=== PATIENT | female | born 1965 | race Caucasian/White ===

== ENCOUNTER → 2018-11-14 | Outpatient (CLI) | payer OTHER ==
[~2018-11-14] MED LIST: HCTZ PO; LEXA1TAB2 PO; LISI10TA4 PO; PAXI20TA29 PO; TRAM50TA2 PO; TRAZ-252 PO
--- NOTE | 2018-11-14 15:19 | REP ---
MRI brain without contrast: History: 47 fullness. Memory loss. . Comparison study: No comparison brain imaging. Technique: Axial and sagittal imaging planes are utilized for T1 and T2-weighted scans. Sequences include spin-echo, fast spin echo, FLAIR, and diffusion weighted sequences. MRI findings: No bony calvarial lesion is seen. Craniocervical junction and upper cervical cord are normal in appearance. There is no MR evidence of significant paranasal sinus disease. No intraorbital abnormality is seen. The lateral, third, and fourth ventricles are normal in size and position. Keith-white differentiation pattern is intact above and below the tentorium. There is no evidence of intracranial hemorrhage. No mass, infarction, extra-axial fluid collection or midline shift is seen. No abnormal white matter lesion is seen. Impression: Negative noncontrast brain MRI study. Electronically Signed by Noah Newberry MD 11/14/2018 03:11 P
--- NOTE | 2018-11-14 15:52 | REP ---
MRI lumbar spine without contrast: History: Lower back pain with radicular symptoms. Degenerative disc disease. Spinal arthritis. No comparison lumbar spine imaging. Technique: Sagittal and axial T1 and T2-weighted scans are acquired in the usual fashion with and without fat saturation. Sequences include spin echo, turbo spin-echo, and STIR imaging sequences. MRI findings: Lumbar vertebral body heights are preserved. There is degenerative disc disease at L3-4 and L4-5 and to some degree L5-S1 with narrowing and decreased disc space signal intensity. There are fairly prominent reactive marrow changes on either side of the L4-5 disc level. Cortical and medullary bone signal intensity are otherwise normal. The tip of the conus medullaris is normal in position and appearance at L1. At L5-S1, axial and sagittal images demonstrate moderate facet hypertrophy bilaterally, left greater than right. There is a left foraminal disc bulge. The left S1 root sleeve is surrounded by epidural fat without evidence of compression however. At L4-5, there is degenerative disc narrowing. Diffuse posterior disc bulging and early spurring is seen effacing the thecal sac. The pedicles are developmentally short and there is a moderate ligamentum flavum and facet hypertrophy. These factors combine to produce moderate central canal stenosis. Midline AP dimension of the thecal sac at this level is 6.4 mm. No neural foraminal narrowing is seen. At L3-4, there is a grade 1 degenerative 3 mm spondylolisthesis. This is due to degenerative disc and osteoarthritic facet disease. There is no evidence of spondylolysis. There is advanced facet hypertrophy and some ligamentum flavum hypertrophy at L3-4. Combined with the spondylolisthesis, there is moderate central canal stenosis. The midline AP dimension of the thecal sac at L3-4 is 7.6 mm. No neural foraminal narrowing is appreciated. At L2-3, canal size is borderline. There is mild ligamentum flavum and facet hypertrophy. No disc protrusion or neural foraminal narrowing is seen. The L1-2 disc level is unremarkable. Impression: Moderate central canal stenosis at L3-4 and L4-5 as above due to degenerative disc disease. There is a grade 1 spondylolisthesis at L3-4 which is degenerative. There is a left posterior disc and left foraminal disc bulge at L5-S1. Fairly prominent facet osteoarthritis is seen in the lumbar spine at multiple levels as above. Electronically Signed by Noah Newberry MD 11/14/2018 04:23 P
== END ==
LOC: M RAD 12:18
PROVIDERS: ATTEND Nurse Practitioner Family
DX: R68.89 Other general symptoms and signs (principal)